=== PATIENT | male | born 1940 | race Caucasian/White ===

== ENCOUNTER 2017-08-23 18:10 | Inpatient (IN) | payer MEDICARE ==
[~2017-08-23] VITALS: Ht 175.3 cm; Wt 81.6 kg
[2017-08-23] MEDS ORDERED: ONDANSETRON HCL 4 MG TABLET PO PRN (19:45)
[2017-08-23 20:20] VITALS: BP 156/69
[2017-08-23 21:13] VITALS: BP 167/78
[2017-08-23] MEDS: METOPROLOL TARTRATE 25 MG TABLET PO SCH (21:14)
[2017-08-23] MEDS: ATORVASTATIN CALCIUM 40 MG TABLET PO SCH (21:15)
[2017-08-23] MEDS: DOCUSATE SODIUM 100 MG CAPSULE PO SCH (21:15)
[2017-08-23] MEDS: SENNA 187 MG TABLET PO SCH (21:15)
[2017-08-24 03:21] LABS: APPEARANCE,URINE CLEAR (CLEAR); BILIRUBIN,URINE NEGATIVE (NEGATIVE); GLUCOSE, URINE (UA) NEGATIVE (NEGATIVE); KETONES,URINE NEGATIVE (NEGATIVE); LEUKOCYTE ESTERASE ,URINE NEGATIVE (NEGATIVE); NITRATE,URINE NEGATIVE (NEGATIVE); OCCULT BLOOD,URINE NEGATIVE (NEGATIVE); PH,URINE 5.5 (5.0-8.0); PROTEIN,URINE NEGATIVE (NEGATIVE); UROBILINOGEN,URINE 0.2 mg/dL (<=1.0)
[2017-08-24 04:30] VITALS: BP 143/66
[2017-08-24 07:10] LABS: BASOPHILS % (AUTO) 0.4 % (0.0-2.0); EOSINOPHILS % (AUTO) 1.5 % (1.0-6.0); HEMATOCRIT 37.5 % (41-53); HEMOGLOBIN 12.7 g/dL (13.5-17.5); LYMPHOCYTES # (AUTO) 4.5 K/uL (1.0-4.8); LYMPHOCYTES % (AUTO) 27.8 % (22.0-44.0); MEAN CORPUSCULAR HGB CONC 33.7 G/dL (31.0-37.0); MEAN CORPUSCULAR VOLUME 80 fL (80-100); MONOCYTES # (AUTO) 1.8 K/uL (0.1-1.0); MONOCYTES % (AUTO) 11.3 % (2.0-9.0); NEUTROPHILS # (AUTO) 9.6 K/uL (1.8-7.7); PLATELET COUNT (AUTO) 198 K/uL (150-450); RED CELL DISTRIBUTION WIDTH 13.3 % (11.5-14.5)
[2017-08-24 07:41] LABS: ALBUMIN 3.1 g/dL (3.4-5.0); BILIRUBIN,TOTAL 0.5 mg/dL (0.1-1.0); CALCIUM, TOTAL 8.9 mg/dL (8.8-10.5); CREATININE 1.32 mg/dL (0.60-1.30); POTASSIUM 4.3 mmol/L (3.5-5.1)
[2017-08-24 07:49] VITALS: BP 124/58
[2017-08-24] MEDS: ASPIRIN 81 MG CHEWABLE TABLET PO SCH (08:22)
[2017-08-24] MEDS: DOCUSATE SODIUM 100 MG CAPSULE PO SCH (08:22)
[2017-08-24] MEDS: FAMOTIDINE 20 MG TABLET PO SCH (08:22)
[2017-08-24] MEDS: METOPROLOL TARTRATE 25 MG TABLET PO SCH ×2 (08:22→20:20)
[2017-08-24 15:44] VITALS: BP 124/57
[2017-08-24 16:28] LABS: APPEARANCE,URINE CLEAR (CLEAR); BILIRUBIN,URINE NEGATIVE (NEGATIVE); GLUCOSE, URINE (UA) NEGATIVE (NEGATIVE); KETONES,URINE NEGATIVE (NEGATIVE); LEUKOCYTE ESTERASE ,URINE NEGATIVE (NEGATIVE); NITRATE,URINE NEGATIVE (NEGATIVE); OCCULT BLOOD,URINE NEGATIVE (NEGATIVE); PH,URINE 5.5 (5.0-8.0); PROTEIN,URINE NEGATIVE (NEGATIVE); UROBILINOGEN,URINE 0.2 mg/dL (<=1.0)
[2017-08-24 16:52] LABS: RBC,URINE None Seen /HPF (0-2)
[2017-08-24 16:53] LABS: BACTERIA,URINE Rare /HPF (None Seen); SQUAMOUS EPITHELIAL CELL,UR Rare /LPF (None Seen)
[2017-08-24] MEDS: ACETAMINOPHEN 325 MG TABLET PO PRN (16:58)
[2017-08-24] MEDS: DOCUSATE SODIUM 283 MG/5 ML MINI-ENEMA PR PRN (19:34)
[2017-08-24 20:18] VITALS: BP 108/67
[2017-08-24] MEDS: ATORVASTATIN CALCIUM 40 MG TABLET PO SCH (20:20)
[2017-08-24] MEDS: SENNA 187 MG TABLET PO SCH (20:20)
[2017-08-24] MEDS: DOCUSATE SODIUM 250 MG CAPSULE PO SCH (20:20)
[2017-08-24] MEDS: DICLOFENAC SODIUM 1% 100 GM GEL [2GM] TP SCH (20:40)
[2017-08-24] MEDS ORDERED: IBUPROFEN 400 MG TABLET PO PRN (20:45)
[2017-08-25 00:39] VITALS: BP 128/70
[2017-08-25 07:25] VITALS: BP 138/67
[2017-08-25] MEDS: FAMOTIDINE 20 MG TABLET PO SCH (08:07)
[2017-08-25] MEDS: DOCUSATE SODIUM 250 MG CAPSULE PO SCH ×2 (08:07→20:01)
[2017-08-25] MEDS: METOPROLOL TARTRATE 25 MG TABLET PO SCH ×2 (08:09→20:01)
[2017-08-25] MEDS: ASPIRIN 81 MG CHEWABLE TABLET PO SCH (08:09)
[2017-08-25] MEDS: DICLOFENAC SODIUM 1% 100 GM GEL [2GM] TP SCH ×2 (10:04→20:03)
[2017-08-25 15:10] VITALS: BP 157/66
[2017-08-25 20:00] VITALS: BP 127/64
[2017-08-25] MEDS: ATORVASTATIN CALCIUM 40 MG TABLET PO SCH (20:01)
[2017-08-25] MEDS: SENNA 187 MG TABLET PO SCH (20:01)
[2017-08-26] VITALS: BP 117/58
[2017-08-26 07:05] VITALS: BP 142/68
[2017-08-26] MEDS: FAMOTIDINE 20 MG TABLET PO SCH (07:49)
[2017-08-26] MEDS: METOPROLOL TARTRATE 25 MG TABLET PO SCH ×2 (07:49→20:16)
[2017-08-26] MEDS: ASPIRIN 81 MG CHEWABLE TABLET PO SCH (07:49)
[2017-08-26] MEDS: DOCUSATE SODIUM 250 MG CAPSULE PO SCH ×2 (07:49→20:16)
[2017-08-26] MEDS: DICLOFENAC SODIUM 1% 100 GM GEL [2GM] TP SCH ×2 (07:50→20:16)
[2017-08-26] MEDS: ACETAMINOPHEN 325 MG TABLET PO PRN (07:50)
[2017-08-26 08:53] LABS: URIC ACID 9.4 mg/dL (2.6-7.2)
[2017-08-26] MEDS: HEPARIN SODIUM,PORCINE 5,000 UNITS/ML VIAL SQ SCH ×2 (12:22→20:16)
[2017-08-26 15:47] VITALS: BP 141/67
[2017-08-26 20:10] VITALS: BP 132/56
[2017-08-26] MEDS: SENNA 187 MG TABLET PO SCH (20:16)
[2017-08-26] MEDS: ATORVASTATIN CALCIUM 40 MG TABLET PO SCH (20:16)
[2017-08-26 23:35] VITALS: BP 125/60
[2017-08-27 06:27] LABS: BASOPHILS % (AUTO) 0.7 % (0.0-2.0); EOSINOPHILS % (AUTO) 0.4 % (1.0-6.0); HEMATOCRIT 35.4 % (41-53); LYMPHOCYTES # (AUTO) 3.7 K/uL (1.0-4.8); LYMPHOCYTES % (AUTO) 26.6 % (22.0-44.0); MEAN CORPUSCULAR HEMOGLOBIN 27.1 pg (26.0-34.0); MEAN CORPUSCULAR VOLUME 80 fL (80-100); MONOCYTES # (AUTO) 1.5 K/uL (0.1-1.0); MONOCYTES % (AUTO) 10.5 % (2.0-9.0); NEUTROPHILS # (AUTO) 8.6 K/uL (1.8-7.7); NEUTROPHILS % (AUTO) 61.8 % (40.0-70.0); PLATELET COUNT (AUTO) 251 K/uL (150-450); RED BLOOD CELL COUNT(AUTO) 4.44 MIL/uL (4.50-5.90); RED CELL DISTRIBUTION WIDTH 13.3 % (11.5-14.5)
[2017-08-27 06:56] LABS: CREATININE 1.36 mg/dL (0.60-1.30); POTASSIUM 3.9 mmol/L (3.5-5.1)
[2017-08-27 06:57] LABS: CALCIUM, TOTAL 8.8 mg/dL (8.8-10.5)
[2017-08-27 07:45] VITALS: BP 146/69
[2017-08-27] MEDS: FAMOTIDINE 20 MG TABLET PO SCH (08:21)
[2017-08-27] MEDS: METOPROLOL TARTRATE 25 MG TABLET PO SCH ×2 (08:21→20:25)
[2017-08-27] MEDS: ASPIRIN 81 MG CHEWABLE TABLET PO SCH (08:21)
[2017-08-27] MEDS: DOCUSATE SODIUM 250 MG CAPSULE PO SCH ×2 (08:21→20:25)
[2017-08-27] MEDS: DICLOFENAC SODIUM 1% 100 GM GEL [2GM] TP SCH ×2 (08:22→20:25)
[2017-08-27] MEDS: HEPARIN SODIUM,PORCINE 5,000 UNITS/ML VIAL SQ SCH ×2 (08:22→20:26)
[2017-08-27 15:39] VITALS: BP 140/56
[2017-08-27] MEDS ORDERED: MAGNESIUM HYDROXIDE SUSPENSION 30 ML UDCUP PO PRN (19:00)
[2017-08-27 20:24] VITALS: BP 135/59
[2017-08-27] MEDS: ATORVASTATIN CALCIUM 40 MG TABLET PO SCH (20:25)
[2017-08-27] MEDS: SENNA 187 MG TABLET PO SCH (20:25)
[2017-08-27] MEDS: ACETAMINOPHEN 325 MG TABLET PO PRN (20:46)
[2017-08-27 23:15] VITALS: BP 123/58
[2017-08-28] MEDS: DOCUSATE SODIUM 283 MG/5 ML MINI-ENEMA PR PRN (05:06)
[2017-08-28] MEDS: ACETAMINOPHEN 325 MG TABLET PO PRN ×3 (05:15→23:37)
[2017-08-28 08:50] VITALS: BP 122/64
[2017-08-28] MEDS: METOPROLOL TARTRATE 25 MG TABLET PO SCH ×2 (08:50→20:12)
[2017-08-28] MEDS: COLCHICINE 0.6 MG TABLET PO SCH (08:50)
[2017-08-28] MEDS: DICLOFENAC SODIUM 1% 100 GM GEL [2GM] TP SCH ×2 (08:50→20:13)
[2017-08-28] MEDS: POLYETHYLENE GLYCOL 3350 17 GM PACKET PO SCH (08:51)
[2017-08-28] MEDS: ASPIRIN 81 MG CHEWABLE TABLET PO SCH (08:51)
[2017-08-28] MEDS: FAMOTIDINE 20 MG TABLET PO SCH (08:51)
[2017-08-28] MEDS: DOCUSATE SODIUM 250 MG CAPSULE PO SCH ×2 (08:51→20:12)
[2017-08-28] MEDS: HEPARIN SODIUM,PORCINE 5,000 UNITS/ML VIAL SQ SCH ×2 (08:52→20:12)
[2017-08-28 15:14] VITALS: BP 135/57
[2017-08-28 20:10] VITALS: BP 119/60
[2017-08-28] MEDS: ATORVASTATIN CALCIUM 40 MG TABLET PO SCH (20:12)
[2017-08-28] MEDS: SENNA 187 MG TABLET PO SCH (20:12)
[2017-08-28 23:37] VITALS: BP 135/57
[2017-08-29 06:57] LABS: BASOPHILS % (AUTO) 0.2 % (0.0-2.0); EOSINOPHILS % (AUTO) 0.8 % (1.0-6.0); HEMATOCRIT 34.5 % (41-53); HEMOGLOBIN 11.4 g/dL (13.5-17.5); LYMPHOCYTES # (AUTO) 3.8 K/uL (1.0-4.8); LYMPHOCYTES % (AUTO) 26.4 % (22.0-44.0); MEAN CORPUSCULAR HEMOGLOBIN 26.5 pg (26.0-34.0); MEAN CORPUSCULAR HGB CONC 33.1 G/dL (31.0-37.0); MEAN CORPUSCULAR VOLUME 80 fL (80-100); MONOCYTES # (AUTO) 1.9 K/uL (0.1-1.0); MONOCYTES % (AUTO) 13.4 % (2.0-9.0); NEUTROPHILS # (AUTO) 8.4 K/uL (1.8-7.7); NEUTROPHILS % (AUTO) 59.2 % (40.0-70.0); PLATELET COUNT (AUTO) 278 K/uL (150-450); RED BLOOD CELL COUNT(AUTO) 4.32 MIL/uL (4.50-5.90); RED CELL DISTRIBUTION WIDTH 13.2 % (11.5-14.5)
[2017-08-29 07:06] LABS: CALCIUM, TOTAL 8.9 mg/dL (8.8-10.5); CREATININE 1.36 mg/dL (0.60-1.30); MAGNESIUM 2.5 mg/dL (1.80-2.40); PHOSPHORUS 3.7 mg/dL (2.5-4.9); POTASSIUM 4.7 mmol/L (3.5-5.1)
[2017-08-29 07:25] VITALS: BP 131/61
[2017-08-29] MEDS: ASPIRIN 81 MG CHEWABLE TABLET PO SCH (08:32)
[2017-08-29] MEDS: FAMOTIDINE 20 MG TABLET PO SCH (08:32)
[2017-08-29] MEDS: METOPROLOL TARTRATE 25 MG TABLET PO SCH ×2 (08:32→20:02)
[2017-08-29] MEDS: DOCUSATE SODIUM 250 MG CAPSULE PO SCH ×2 (08:32→20:02)
[2017-08-29] MEDS: COLCHICINE 0.6 MG TABLET PO SCH (08:32)
[2017-08-29] MEDS: HEPARIN SODIUM,PORCINE 5,000 UNITS/ML VIAL SQ SCH ×2 (08:32→20:02)
[2017-08-29] MEDS: POLYETHYLENE GLYCOL 3350 17 GM PACKET PO SCH (08:33)
[2017-08-29] MEDS: DICLOFENAC SODIUM 1% 100 GM GEL [2GM] TP SCH ×2 (08:33→20:02)
[2017-08-29] MEDS ORDERED: PredniSONE 20 MG TABLET PO ONE (12:00)
[2017-08-29] MEDS ORDERED: LACTULOSE 20 GM/30 ML SOLUTION UDCUP PO PRN (12:00)
[2017-08-29] MEDS ORDERED: TAMS0.4C32 PO (14:34)
[2017-08-29] MEDS ORDERED: CLOP75 PO (14:35)
[2017-08-29] MEDS ORDERED: AMLO2.5T PO (14:36)
[2017-08-29 15:22] VITALS: BP 127/60
[2017-08-29] MEDS: ACETAMINOPHEN 325 MG TABLET PO PRN (15:25)
[2017-08-29 19:56] VITALS: BP 124/62
[2017-08-29] MEDS: ATORVASTATIN CALCIUM 40 MG TABLET PO SCH (20:01)
[2017-08-29] MEDS: GABAPENTIN 300 MG CAPSULE PO SCH (20:02)
[2017-08-29] MEDS: SENNA 187 MG TABLET PO SCH (20:02)
[2017-08-29 22:29] VITALS: BP 130/60
[2017-08-30 01:00] VITALS: BP 144/82
[2017-08-30 07:30] VITALS: BP 129/58
[2017-08-30] MEDS ORDERED: PredniSONE 20 MG TABLET PO ONE (07:30)
[2017-08-30] MEDS: POLYETHYLENE GLYCOL 3350 17 GM PACKET PO SCH (08:18)
[2017-08-30] MEDS: DOCUSATE SODIUM 250 MG CAPSULE PO SCH ×2 (08:18→20:33)
[2017-08-30] MEDS: FAMOTIDINE 20 MG TABLET PO SCH (08:18)
[2017-08-30] MEDS: DICLOFENAC SODIUM 1% 100 GM GEL [2GM] TP SCH ×2 (08:19→20:33)
[2017-08-30] MEDS: COLCHICINE 0.6 MG TABLET PO SCH (08:19)
[2017-08-30] MEDS: ASPIRIN 81 MG CHEWABLE TABLET PO SCH (08:19)
[2017-08-30] MEDS: HEPARIN SODIUM,PORCINE 5,000 UNITS/ML VIAL SQ SCH ×2 (08:19→20:32)
[2017-08-30] MEDS: METOPROLOL TARTRATE 25 MG TABLET PO SCH ×2 (08:51→20:33)
[2017-08-30 16:10] VITALS: BP 145/90
[2017-08-30] MEDS: SENNA 187 MG TABLET PO SCH (20:33)
[2017-08-30] MEDS: GABAPENTIN 300 MG CAPSULE PO SCH (20:33)
[2017-08-30] MEDS: ATORVASTATIN CALCIUM 40 MG TABLET PO SCH (20:33)
[2017-08-30 20:44] VITALS: BP 153/76
[2017-08-31] VITALS: BP 124/71
[2017-08-31 07:06] VITALS: BP 130/58
[2017-08-31 07:10] LABS: BASOPHILS % (AUTO) 0.8 % (0.0-2.0); EOSINOPHILS % (AUTO) 0.2 % (1.0-6.0); HEMOGLOBIN 11.1 g/dL (13.5-17.5); LYMPHOCYTES # (AUTO) 4.1 K/uL (1.0-4.8); LYMPHOCYTES % (AUTO) 24.5 % (22.0-44.0); MEAN CORPUSCULAR HEMOGLOBIN 26.6 pg (26.0-34.0); MEAN CORPUSCULAR HGB CONC 33.6 G/dL (31.0-37.0); MEAN CORPUSCULAR VOLUME 79 fL (80-100); MONOCYTES # (AUTO) 1.4 K/uL (0.1-1.0); MONOCYTES % (AUTO) 8.1 % (2.0-9.0); NEUTROPHILS # (AUTO) 11.1 K/uL (1.8-7.7); NEUTROPHILS % (AUTO) 66.4 % (40.0-70.0); PLATELET COUNT (AUTO) 339 K/uL (150-450); RED BLOOD CELL COUNT(AUTO) 4.17 MIL/uL (4.50-5.90); RED CELL DISTRIBUTION WIDTH 13.1 % (11.5-14.5)
[2017-08-31] MEDS ORDERED: PredniSONE 10 MG TABLET PO ONE (07:30)
[2017-08-31 07:32] LABS: CREATININE 1.33 mg/dL (0.60-1.30); MAGNESIUM 2.4 mg/dL (1.80-2.40); PHOSPHORUS 3.9 mg/dL (2.5-4.9); POTASSIUM 4.1 mmol/L (3.5-5.1)
[2017-08-31] MEDS: POLYETHYLENE GLYCOL 3350 17 GM PACKET PO SCH ×2 (08:00→20:28)
[2017-08-31] MEDS: METOPROLOL TARTRATE 25 MG TABLET PO SCH ×2 (08:01→20:29)
[2017-08-31] MEDS: HEPARIN SODIUM,PORCINE 5,000 UNITS/ML VIAL SQ SCH ×2 (08:01→20:28)
[2017-08-31] MEDS: ASPIRIN 81 MG CHEWABLE TABLET PO SCH (08:01)
[2017-08-31] MEDS: FAMOTIDINE 20 MG TABLET PO SCH (08:01)
[2017-08-31] MEDS: COLCHICINE 0.6 MG TABLET PO SCH (08:01)
[2017-08-31] MEDS: DOCUSATE SODIUM 250 MG CAPSULE PO SCH ×2 (08:01→20:28)
[2017-08-31] MEDS: DICLOFENAC SODIUM 1% 100 GM GEL [2GM] TP SCH ×2 (08:03→20:29)
[2017-08-31 15:29] VITALS: BP 148/75
[2017-08-31 20:25] VITALS: BP 133/61
[2017-08-31] MEDS: ATORVASTATIN CALCIUM 40 MG TABLET PO SCH (20:28)
[2017-08-31] MEDS: SENNA 187 MG TABLET PO SCH (20:28)
[2017-08-31] MEDS: GABAPENTIN 300 MG CAPSULE PO SCH (20:28)
[2017-08-31 23:54] VITALS: BP 115/59
[2017-09-01 07:01] VITALS: BP 128/61
[2017-09-01] MEDS ORDERED: PredniSONE 20 MG TABLET PO ONE (07:30)
[2017-09-01] MEDS: METOPROLOL TARTRATE 25 MG TABLET PO SCH ×2 (07:33→20:12)
[2017-09-01] MEDS: HEPARIN SODIUM,PORCINE 5,000 UNITS/ML VIAL SQ SCH ×2 (07:33→20:11)
[2017-09-01] MEDS: FAMOTIDINE 20 MG TABLET PO SCH (07:33)
[2017-09-01] MEDS: ASPIRIN 81 MG CHEWABLE TABLET PO SCH (07:33)
[2017-09-01] MEDS: DOCUSATE SODIUM 250 MG CAPSULE PO SCH ×2 (07:33→20:12)
[2017-09-01] MEDS: COLCHICINE 0.6 MG TABLET PO SCH (07:33)
[2017-09-01] MEDS: POLYETHYLENE GLYCOL 3350 17 GM PACKET PO SCH ×2 (07:34→20:12)
[2017-09-01] MEDS: DICLOFENAC SODIUM 1% 100 GM GEL [2GM] TP SCH ×2 (07:34→20:12)
[2017-09-01 08:00] VITALS: BP 121/66
[2017-09-01 15:53] VITALS: BP 132/67
[2017-09-01] MEDS: SENNA 187 MG TABLET PO SCH (20:11)
[2017-09-01 20:12] VITALS: BP 140/69
[2017-09-01] MEDS: ATORVASTATIN CALCIUM 40 MG TABLET PO SCH (20:12)
[2017-09-01] MEDS: GABAPENTIN 300 MG CAPSULE PO SCH (20:12)
[2017-09-01 23:20] VITALS: BP 137/61
[2017-09-02 06:40] LABS: BASOPHILS % (AUTO) 0.6 % (0.0-2.0); EOSINOPHILS % (AUTO) 0.7 % (1.0-6.0); HEMATOCRIT 34.1 % (41-53); HEMOGLOBIN 11.8 g/dL (13.5-17.5); LYMPHOCYTES # (AUTO) 4.7 K/uL (1.0-4.8); LYMPHOCYTES % (AUTO) 34.8 % (22.0-44.0); MEAN CORPUSCULAR HEMOGLOBIN 27.3 pg (26.0-34.0); MEAN CORPUSCULAR HGB CONC 34.5 G/dL (31.0-37.0); MEAN CORPUSCULAR VOLUME 79 fL (80-100); MONOCYTES # (AUTO) 1.4 K/uL (0.1-1.0); MONOCYTES % (AUTO) 10.7 % (2.0-9.0); NEUTROPHILS # (AUTO) 7.2 K/uL (1.8-7.7); NEUTROPHILS % (AUTO) 53.2 % (40.0-70.0); PLATELET COUNT (AUTO) 363 K/uL (150-450); RED BLOOD CELL COUNT(AUTO) 4.31 MIL/uL (4.50-5.90); RED CELL DISTRIBUTION WIDTH 13.2 % (11.5-14.5)
[2017-09-02 06:55] LABS: CALCIUM, TOTAL 8.9 mg/dL (8.8-10.5); CREATININE 1.31 mg/dL (0.60-1.30); MAGNESIUM 2.2 mg/dL (1.80-2.40); POTASSIUM 4.3 mmol/L (3.5-5.1)
[2017-09-02 07:25] VITALS: BP 130/62
[2017-09-02] MEDS ORDERED: PredniSONE 10 MG TABLET PO ONE (07:30)
[2017-09-02] MEDS: COLCHICINE 0.6 MG TABLET PO SCH (07:49)
[2017-09-02] MEDS: HEPARIN SODIUM,PORCINE 5,000 UNITS/ML VIAL SQ SCH ×2 (07:49→21:26)
[2017-09-02] MEDS: ASPIRIN 81 MG CHEWABLE TABLET PO SCH (07:50)
[2017-09-02] MEDS: FAMOTIDINE 20 MG TABLET PO SCH (07:50)
[2017-09-02] MEDS: DICLOFENAC SODIUM 1% 100 GM GEL [2GM] TP SCH ×2 (07:50→21:25)
[2017-09-02] MEDS: POLYETHYLENE GLYCOL 3350 17 GM PACKET PO SCH ×2 (07:51→21:27)
[2017-09-02] MEDS: DOCUSATE SODIUM 250 MG CAPSULE PO SCH ×3 (07:51→21:29)
[2017-09-02] MEDS: METOPROLOL TARTRATE 25 MG TABLET PO SCH ×2 (09:00→21:26)
[2017-09-02 15:16] VITALS: BP 161/73
[2017-09-02] MEDS: SENNA 187 MG TABLET PO SCH (21:25)
[2017-09-02] MEDS: GABAPENTIN 300 MG CAPSULE PO SCH (21:26)
[2017-09-02] MEDS: ATORVASTATIN CALCIUM 40 MG TABLET PO SCH (21:26)
[2017-09-02 21:29] VITALS: BP 150/67
[2017-09-03 02:04] VITALS: BP 137/70
[2017-09-03 07:10] VITALS: BP 144/73
[2017-09-03] MEDS: METOPROLOL TARTRATE 25 MG TABLET PO SCH ×2 (08:22→20:11)
[2017-09-03] MEDS: FAMOTIDINE 20 MG TABLET PO SCH (08:22)
[2017-09-03] MEDS: HEPARIN SODIUM,PORCINE 5,000 UNITS/ML VIAL SQ SCH ×2 (08:22→20:12)
[2017-09-03] MEDS: COLCHICINE 0.6 MG TABLET PO SCH (08:22)
[2017-09-03] MEDS: ASPIRIN 81 MG CHEWABLE TABLET PO SCH (08:22)
[2017-09-03] MEDS: DOCUSATE SODIUM 250 MG CAPSULE PO SCH ×3 (08:22→20:11)
[2017-09-03] MEDS: DICLOFENAC SODIUM 1% 100 GM GEL [2GM] TP SCH ×2 (08:22→20:12)
[2017-09-03] MEDS ORDERED: POLYETHYLENE GLYCOL 3350 17 GM PACKET PO PRN (08:30)
[2017-09-03 17:48] VITALS: BP 146/67
[2017-09-03] MEDS: GABAPENTIN 300 MG CAPSULE PO SCH (20:11)
[2017-09-03] MEDS: SENNA 187 MG TABLET PO SCH (20:11)
[2017-09-03] MEDS: ATORVASTATIN CALCIUM 40 MG TABLET PO SCH (20:11)
[2017-09-03 20:14] VITALS: BP 128/58
[2017-09-04 01:15] VITALS: BP 118/63
[2017-09-04 07:45] VITALS: BP 142/67
[2017-09-04] MEDS: ASPIRIN 81 MG CHEWABLE TABLET PO SCH (08:07)
[2017-09-04] MEDS: DOCUSATE SODIUM 250 MG CAPSULE PO SCH ×3 (08:07→20:13)
[2017-09-04] MEDS: FAMOTIDINE 20 MG TABLET PO SCH (08:07)
[2017-09-04] MEDS: COLCHICINE 0.6 MG TABLET PO SCH (08:07)
[2017-09-04] MEDS: METOPROLOL TARTRATE 25 MG TABLET PO SCH ×2 (08:07→20:11)
[2017-09-04] MEDS: HEPARIN SODIUM,PORCINE 5,000 UNITS/ML VIAL SQ SCH ×2 (08:08→20:11)
[2017-09-04] MEDS: DICLOFENAC SODIUM 1% 100 GM GEL [2GM] TP SCH ×3 (08:08→20:12)
[2017-09-04 16:12] VITALS: BP 131/60
[2017-09-04] MEDS: GABAPENTIN 300 MG CAPSULE PO SCH (20:10)
[2017-09-04] MEDS: ATORVASTATIN CALCIUM 40 MG TABLET PO SCH (20:10)
[2017-09-04] MEDS: SENNA 187 MG TABLET PO SCH ×2 (20:10→20:13)
[2017-09-05 00:05] VITALS: BP 123/58
[2017-09-05 07:05] VITALS: BP 119/64
[2017-09-05] MEDS: DOCUSATE SODIUM 250 MG CAPSULE PO SCH ×4 (09:00→20:21)
[2017-09-05] MEDS: DICLOFENAC SODIUM 1% 100 GM GEL [2GM] TP SCH ×2 (09:06→20:12)
[2017-09-05] MEDS: METOPROLOL TARTRATE 25 MG TABLET PO SCH ×2 (09:07→20:12)
[2017-09-05] MEDS: ASPIRIN 81 MG CHEWABLE TABLET PO SCH (09:07)
[2017-09-05] MEDS: COLCHICINE 0.6 MG TABLET PO SCH (09:07)
[2017-09-05] MEDS: FAMOTIDINE 20 MG TABLET PO SCH (09:07)
[2017-09-05] MEDS: HEPARIN SODIUM,PORCINE 5,000 UNITS/ML VIAL SQ SCH ×2 (09:07→20:12)
[2017-09-05 16:00] VITALS: BP 138/71
[2017-09-05 20:10] VITALS: BP 129/51
[2017-09-05] MEDS: SENNA 187 MG TABLET PO SCH (20:11)
[2017-09-05] MEDS: ATORVASTATIN CALCIUM 40 MG TABLET PO SCH (20:12)
[2017-09-05] MEDS: GABAPENTIN 300 MG CAPSULE PO SCH (20:12)
[2017-09-06 01:00] VITALS: BP 109/61
[2017-09-06 07:33] LABS: CALCIUM, TOTAL 9.2 mg/dL (8.8-10.5); CREATININE 1.41 mg/dL (0.60-1.30); POTASSIUM 4.1 mmol/L (3.5-5.1)
[2017-09-06 08:11] VITALS: BP 122/66
[2017-09-06] MEDS: FAMOTIDINE 20 MG TABLET PO SCH (08:29)
[2017-09-06] MEDS: COLCHICINE 0.6 MG TABLET PO SCH (08:29)
[2017-09-06] MEDS: METOPROLOL TARTRATE 25 MG TABLET PO SCH ×2 (08:29→20:35)
[2017-09-06] MEDS: ASPIRIN 81 MG CHEWABLE TABLET PO SCH (08:29)
[2017-09-06] MEDS: DICLOFENAC SODIUM 1% 100 GM GEL [2GM] TP SCH ×2 (08:30→20:36)
[2017-09-06] MEDS: HEPARIN SODIUM,PORCINE 5,000 UNITS/ML VIAL SQ SCH ×2 (08:30→20:36)
[2017-09-06] MEDS: DOCUSATE SODIUM 250 MG CAPSULE PO SCH ×3 (08:30→20:46)
[2017-09-06 15:55] VITALS: BP 133/74
[2017-09-06 20:35] VITALS: BP 127/60
[2017-09-06] MEDS: GABAPENTIN 300 MG CAPSULE PO SCH (20:35)
[2017-09-06] MEDS: SENNA 187 MG TABLET PO SCH ×2 (20:35→20:46)
[2017-09-06] MEDS: ATORVASTATIN CALCIUM 40 MG TABLET PO SCH (20:35)
[2017-09-07 00:10] VITALS: BP 105/57
[2017-09-07 07:12] VITALS: BP 116/68
[2017-09-07 07:19] LABS: BASOPHILS % (AUTO) 1.5 % (0.0-2.0); EOSINOPHILS % (AUTO) 2.4 % (1.0-6.0); HEMATOCRIT 36.8 % (41-53); HEMOGLOBIN 12.5 g/dL (13.5-17.5); LYMPHOCYTES # (AUTO) 4.9 K/uL (1.0-4.8); LYMPHOCYTES % (AUTO) 33.7 % (22.0-44.0); MEAN CORPUSCULAR HEMOGLOBIN 27.2 pg (26.0-34.0); MEAN CORPUSCULAR HGB CONC 34.1 G/dL (31.0-37.0); MEAN CORPUSCULAR VOLUME 80 fL (80-100); MONOCYTES # (AUTO) 1.3 K/uL (0.1-1.0); MONOCYTES % (AUTO) 8.9 % (2.0-9.0); NEUTROPHILS # (AUTO) 7.7 K/uL (1.8-7.7); NEUTROPHILS % (AUTO) 53.5 % (40.0-70.0); PLATELET COUNT (AUTO) 352 K/uL (150-450); RED BLOOD CELL COUNT(AUTO) 4.62 MIL/uL (4.50-5.90); RED CELL DISTRIBUTION WIDTH 13.4 % (11.5-14.5)
[2017-09-07 07:26] LABS: CALCIUM, TOTAL 9.3 mg/dL (8.8-10.5); CREATININE 1.39 mg/dL (0.60-1.30); POTASSIUM 4.5 mmol/L (3.5-5.1)
[2017-09-07] MEDS: FAMOTIDINE 20 MG TABLET PO SCH (08:01)
[2017-09-07] MEDS: COLCHICINE 0.6 MG TABLET PO SCH (08:01)
[2017-09-07] MEDS: DOCUSATE SODIUM 250 MG CAPSULE PO SCH ×2 (08:01→20:11)
[2017-09-07] MEDS: HEPARIN SODIUM,PORCINE 5,000 UNITS/ML VIAL SQ SCH ×2 (08:01→20:11)
[2017-09-07] MEDS: METOPROLOL TARTRATE 25 MG TABLET PO SCH ×2 (08:01→20:11)
[2017-09-07] MEDS: DICLOFENAC SODIUM 1% 100 GM GEL [2GM] TP SCH ×2 (08:01→20:11)
[2017-09-07] MEDS: ASPIRIN 81 MG CHEWABLE TABLET PO SCH (08:01)
[2017-09-07 10:51] VITALS: BP 157/61
[2017-09-07 15:39] VITALS: BP 144/73
[2017-09-07] MEDS: GABAPENTIN 300 MG CAPSULE PO SCH (20:11)
[2017-09-07] MEDS: ATORVASTATIN CALCIUM 40 MG TABLET PO SCH (20:11)
[2017-09-07] MEDS: SENNA 187 MG TABLET PO SCH (20:11)
[2017-09-08 00:37] VITALS: BP 105/52
[2017-09-08 07:30] VITALS: BP 137/67
[2017-09-08] MEDS: ASPIRIN 81 MG CHEWABLE TABLET PO SCH (08:04)
[2017-09-08] MEDS: DICLOFENAC SODIUM 1% 100 GM GEL [2GM] TP SCH ×2 (08:04→20:01)
[2017-09-08] MEDS: FAMOTIDINE 20 MG TABLET PO SCH (08:04)
[2017-09-08] MEDS: COLCHICINE 0.6 MG TABLET PO SCH (08:04)
[2017-09-08] MEDS: HEPARIN SODIUM,PORCINE 5,000 UNITS/ML VIAL SQ SCH ×2 (08:04→20:01)
[2017-09-08] MEDS: METOPROLOL TARTRATE 25 MG TABLET PO SCH ×2 (08:04→20:01)
[2017-09-08] MEDS: DOCUSATE SODIUM 250 MG CAPSULE PO SCH ×2 (08:05→20:01)
[2017-09-08 15:16] VITALS: BP 135/58
[2017-09-08 19:55] VITALS: BP 132/72
[2017-09-08] MEDS: SENNA 187 MG TABLET PO SCH (20:00)
[2017-09-08] MEDS: GABAPENTIN 300 MG CAPSULE PO SCH (20:01)
[2017-09-08] MEDS: ATORVASTATIN CALCIUM 40 MG TABLET PO SCH (20:01)
[2017-09-09 00:22] VITALS: BP 120/60
[2017-09-09] MEDS: DOCUSATE SODIUM 283 MG/5 ML MINI-ENEMA PR PRN (06:02)
[2017-09-09 07:38] LABS: BASOPHILS % (AUTO) 1.5 % (0.0-2.0); EOSINOPHILS % (AUTO) 1.8 % (1.0-6.0); HEMATOCRIT 37.4 % (41-53); HEMOGLOBIN 12.6 g/dL (13.5-17.5); LYMPHOCYTES # (AUTO) 6.2 K/uL (1.0-4.8); LYMPHOCYTES % (AUTO) 39.5 % (22.0-44.0); MEAN CORPUSCULAR HEMOGLOBIN 26.7 pg (26.0-34.0); MEAN CORPUSCULAR HGB CONC 33.7 G/dL (31.0-37.0); MEAN CORPUSCULAR VOLUME 79 fL (80-100); MONOCYTES # (AUTO) 1.5 K/uL (0.1-1.0); MONOCYTES % (AUTO) 9.4 % (2.0-9.0); NEUTROPHILS # (AUTO) 7.5 K/uL (1.8-7.7); NEUTROPHILS % (AUTO) 47.8 % (40.0-70.0); PLATELET COUNT (AUTO) 365 K/uL (150-450); RED BLOOD CELL COUNT(AUTO) 4.72 MIL/uL (4.50-5.90); RED CELL DISTRIBUTION WIDTH 13.7 % (11.5-14.5)
[2017-09-09 07:47] LABS: CALCIUM, TOTAL 9.2 mg/dL (8.8-10.5); CREATININE 1.36 mg/dL (0.60-1.30); MAGNESIUM 1.8 mg/dL (1.80-2.40); PHOSPHORUS 3.6 mg/dL (2.5-4.9); POTASSIUM 4.1 mmol/L (3.5-5.1)
[2017-09-09 07:53] VITALS: BP 135/71
[2017-09-09] MEDS: COLCHICINE 0.6 MG TABLET PO SCH (08:15)
[2017-09-09] MEDS: DICLOFENAC SODIUM 1% 100 GM GEL [2GM] TP SCH ×2 (08:15→20:27)
[2017-09-09] MEDS: METOPROLOL TARTRATE 25 MG TABLET PO SCH ×2 (08:15→20:25)
[2017-09-09] MEDS: FAMOTIDINE 20 MG TABLET PO SCH (08:15)
[2017-09-09] MEDS: HEPARIN SODIUM,PORCINE 5,000 UNITS/ML VIAL SQ SCH ×2 (08:15→20:26)
[2017-09-09] MEDS: ASPIRIN 81 MG CHEWABLE TABLET PO SCH (08:15)
[2017-09-09] MEDS: DOCUSATE SODIUM 250 MG CAPSULE PO SCH ×4 (08:16→20:38)
[2017-09-09 15:48] VITALS: BP 113/63
[2017-09-09 20:00] VITALS: BP 135/69
[2017-09-09] MEDS: SENNA 187 MG TABLET PO SCH (20:25)
[2017-09-09] MEDS: GABAPENTIN 300 MG CAPSULE PO SCH (20:25)
[2017-09-09] MEDS: ATORVASTATIN CALCIUM 40 MG TABLET PO SCH (20:25)
[2017-09-10 02:44] VITALS: BP 121/61
[2017-09-10 07:24] VITALS: BP 128/64
[2017-09-10] MEDS: DOCUSATE SODIUM 250 MG CAPSULE PO SCH ×2 (07:58→20:51)
[2017-09-10] MEDS: ASPIRIN 81 MG CHEWABLE TABLET PO SCH (07:58)
[2017-09-10] MEDS: HEPARIN SODIUM,PORCINE 5,000 UNITS/ML VIAL SQ SCH ×2 (07:58→20:49)
[2017-09-10] MEDS: FAMOTIDINE 20 MG TABLET PO SCH (07:58)
[2017-09-10] MEDS: DICLOFENAC SODIUM 1% 100 GM GEL [2GM] TP SCH ×2 (07:58→20:50)
[2017-09-10] MEDS: METOPROLOL TARTRATE 25 MG TABLET PO SCH ×2 (07:58→20:50)
[2017-09-10] MEDS: COLCHICINE 0.6 MG TABLET PO SCH (07:58)
[2017-09-10 15:30] VITALS: BP 149/71
[2017-09-10 20:41] VITALS: BP 130/62
[2017-09-10] MEDS: GABAPENTIN 300 MG CAPSULE PO SCH (20:50)
[2017-09-10] MEDS: SENNA 187 MG TABLET PO SCH (20:50)
[2017-09-10] MEDS: ATORVASTATIN CALCIUM 40 MG TABLET PO SCH (20:50)
[2017-09-11 00:32] VITALS: BP 118/62
[2017-09-11 07:24] VITALS: BP 123/66
[2017-09-11] MEDS: FAMOTIDINE 20 MG TABLET PO SCH (07:58)
[2017-09-11] MEDS: ASPIRIN 81 MG CHEWABLE TABLET PO SCH (07:58)
[2017-09-11] MEDS: METOPROLOL TARTRATE 25 MG TABLET PO SCH ×2 (07:58→20:03)
[2017-09-11] MEDS: HEPARIN SODIUM,PORCINE 5,000 UNITS/ML VIAL SQ SCH ×2 (07:58→20:02)
[2017-09-11] MEDS: DOCUSATE SODIUM 250 MG CAPSULE PO SCH ×2 (07:58→20:03)
[2017-09-11] MEDS: COLCHICINE 0.6 MG TABLET PO SCH (07:59)
[2017-09-11] MEDS: DICLOFENAC SODIUM 1% 100 GM GEL [2GM] TP SCH ×2 (08:01→20:02)
[2017-09-11 19:22] VITALS: BP 140/71
[2017-09-11] MEDS: GABAPENTIN 300 MG CAPSULE PO SCH (20:02)
[2017-09-11] MEDS: SENNA 187 MG TABLET PO SCH (20:02)
[2017-09-11] MEDS: ATORVASTATIN CALCIUM 40 MG TABLET PO SCH (20:03)
[2017-09-12 00:48] VITALS: BP 121/52
[2017-09-12 07:55] VITALS: BP 136/76
[2017-09-12] MEDS: METOPROLOL TARTRATE 25 MG TABLET PO SCH ×2 (08:20→21:11)
[2017-09-12] MEDS: COLCHICINE 0.6 MG TABLET PO SCH (08:20)
[2017-09-12] MEDS: DOCUSATE SODIUM 250 MG CAPSULE PO SCH ×2 (08:20→21:00)
[2017-09-12] MEDS: HEPARIN SODIUM,PORCINE 5,000 UNITS/ML VIAL SQ SCH ×2 (08:20→21:11)
[2017-09-12] MEDS: ASPIRIN 81 MG CHEWABLE TABLET PO SCH (08:20)
[2017-09-12] MEDS: FAMOTIDINE 20 MG TABLET PO SCH (08:20)
[2017-09-12] MEDS: DICLOFENAC SODIUM 1% 100 GM GEL [2GM] TP SCH ×2 (08:21→21:11)
[2017-09-12 15:49] VITALS: BP 132/63
[2017-09-12] MEDS: SENNA 187 MG TABLET PO SCH (21:11)
[2017-09-12] MEDS: GABAPENTIN 300 MG CAPSULE PO SCH (21:11)
[2017-09-12] MEDS: ATORVASTATIN CALCIUM 40 MG TABLET PO SCH (21:11)
[2017-09-12 21:12] VITALS: BP 135/69
[2017-09-13 05:00] VITALS: BP 122/62
[2017-09-13 07:13] VITALS: BP 130/59
[2017-09-13] MEDS: HEPARIN SODIUM,PORCINE 5,000 UNITS/ML VIAL SQ SCH ×2 (07:56→20:23)
[2017-09-13] MEDS: DICLOFENAC SODIUM 1% 100 GM GEL [2GM] TP SCH ×2 (07:57→20:25)
[2017-09-13] MEDS: ASPIRIN 81 MG CHEWABLE TABLET PO SCH (07:57)
[2017-09-13] MEDS: COLCHICINE 0.6 MG TABLET PO SCH (07:57)
[2017-09-13] MEDS: FAMOTIDINE 20 MG TABLET PO SCH (07:57)
[2017-09-13] MEDS: METOPROLOL TARTRATE 25 MG TABLET PO SCH ×2 (07:57→20:23)
[2017-09-13] MEDS: DOCUSATE SODIUM 250 MG CAPSULE PO SCH ×2 (07:58→20:23)
[2017-09-13 15:15] VITALS: BP 138/70
[2017-09-13] MEDS: SENNA 187 MG TABLET PO SCH (20:22)
[2017-09-13] MEDS: GABAPENTIN 300 MG CAPSULE PO SCH (20:22)
[2017-09-13] MEDS: ATORVASTATIN CALCIUM 40 MG TABLET PO SCH (20:22)
[2017-09-13 20:30] VITALS: BP 123/67
[2017-09-14] MEDS ORDERED: ASPI81 PO (03:55)
[2017-09-14] MEDS ORDERED: DOCU250C91 PO (03:55)
[2017-09-14] MEDS ORDERED: ATOR40TA28 PO (03:55)
[2017-09-14] MEDS ORDERED: GABA-531 PO (03:55)
[2017-09-14] MEDS ORDERED: COLC0.6T67 PO (03:55)
[2017-09-14] MEDS ORDERED: METO25 PO (03:55)
[2017-09-14] MEDS ORDERED: FAMO20 PO (03:55)
[2017-09-14] MEDS ORDERED: DICL2100G TP (03:55)
[2017-09-14 05:32] VITALS: BP 113/62
[2017-09-14 07:20] VITALS: BP 138/74
[2017-09-14 07:40] LABS: BASOPHILS % (AUTO) 0.7 % (0.0-2.0); EOSINOPHILS % (AUTO) 2.7 % (1.0-6.0); HEMATOCRIT 39.1 % (41-53); HEMOGLOBIN 13.7 g/dL (13.5-17.5); LYMPHOCYTES # (AUTO) 5.5 K/uL (1.0-4.8); LYMPHOCYTES % (AUTO) 41.4 % (22.0-44.0); MEAN CORPUSCULAR HEMOGLOBIN 27.4 pg (26.0-34.0); MEAN CORPUSCULAR VOLUME 78 fL (80-100); MONOCYTES # (AUTO) 1.2 K/uL (0.1-1.0); MONOCYTES % (AUTO) 9.1 % (2.0-9.0); NEUTROPHILS # (AUTO) 6.2 K/uL (1.8-7.7); NEUTROPHILS % (AUTO) 46.1 % (40.0-70.0); PLATELET COUNT (AUTO) 308 K/uL (150-450); RED BLOOD CELL COUNT(AUTO) 4.99 MIL/uL (4.50-5.90); RED CELL DISTRIBUTION WIDTH 13.8 % (11.5-14.5)
[2017-09-14] MEDS: DOCUSATE SODIUM 250 MG CAPSULE PO SCH ×2 (08:24→08:26)
[2017-09-14] MEDS: FAMOTIDINE 20 MG TABLET PO SCH (08:24)
[2017-09-14] MEDS: METOPROLOL TARTRATE 25 MG TABLET PO SCH (08:24)
[2017-09-14] MEDS: ASPIRIN 81 MG CHEWABLE TABLET PO SCH (08:24)
[2017-09-14] MEDS: COLCHICINE 0.6 MG TABLET PO SCH (08:24)
[2017-09-14] MEDS: HEPARIN SODIUM,PORCINE 5,000 UNITS/ML VIAL SQ SCH (08:24)
[2017-09-14] MEDS: DICLOFENAC SODIUM 1% 100 GM GEL [2GM] TP SCH (08:25)
[2017-09-14 10:06] LABS: CALCIUM, TOTAL 9.7 mg/dL (8.8-10.5); CREATININE 1.53 mg/dL (0.60-1.30); POTASSIUM 4.1 mmol/L (3.5-5.1)
== END 2017-09-14 10:05 | disposition home health service (06) | DRG 56 ==
LOC: 2WR 19:30
PROVIDERS: ADMIT Physical Medicine & Rehabilitation; ATTEND Physical Medicine & Rehabilitation
DX: I69.351 Hemiplegia and hemiparesis following cerebral infarction affecting right dominant side (principal); I63.9 Cerebral infarction, unspecified; N17.9 Acute kidney failure, unspecified; E46 Unspecified protein-calorie malnutrition; D72.829 Elevated white blood cell count, unspecified; E78.5 Hyperlipidemia, unspecified; I12.9 Hypertensive chronic kidney disease with stage 1 through stage 4 chronic kidney disease, or unspecified chronic kidney disease; I73.9 Peripheral vascular disease, unspecified; M10.9 Gout, unspecified; N18.9 Chronic kidney disease, unspecified; R29.810 Facial weakness; K59.00 Constipation, unspecified; M19.90 Unspecified osteoarthritis, unspecified site; D63.1 Anemia in chronic kidney disease; E78.00 Pure hypercholesterolemia, unspecified; R05 Cough; Z79.899 Other long term (current) drug therapy; Z68.26 Body mass index [BMI] 26.0-26.9, adult; Z87.891 Personal history of nicotine dependence; Z90.49 Acquired absence of other specified parts of digestive tract; T38.0X5A Adverse effect of glucocorticoids and synthetic analogues, initial encounter
CPT/HCPCS: 76770; 82271; 83735; 84100; 84145; 84550; 87081; 92507; 92508; 92523; 97110; 97112; 97116; 97150; 97162; 97163; 97167; 97530; 97535; 99366; J1644